=== PATIENT | female | born 1990 | race Caucasian/White ===

== ENCOUNTER 2019-07-08 19:47 | Emergency (ER) | payer BC ==
[2019-07-08] MEDS ORDERED: Acetaminophen 500 MG TAB ONE (20:08)
[2019-07-08 20:25] LABS: Pregnancy Test - Urine (BHCG) Negative (Negative); Pregu Control Background? CLEAR/WHITE (CLR/WHITE); Pregu Control Bar Appear? YES (CONTROL BAR); Specific Gravity 1.033 (1.002-1.036)
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
[2019-07-08] MEDS ORDERED: Ketorolac Tromethamine 30 MG/ML VIAL ONE (20:49)
[2019-07-08] MEDS ORDERED: Bacitracin 1 PK ONE (21:01)
[2019-07-08] MEDS ORDERED: Bacitracin Zinc Ointment 30 gm TUBE ONE (21:02)
== END 2019-07-08 21:16 | disposition home or self-care (01) ==
LOC: SCSER 19:47
DX: S09.90XA Unspecified injury of head, initial encounter (principal); S50.812A Abrasion of left forearm, initial encounter; H91.92 Unspecified hearing loss, left ear; F32.9 Major depressive disorder, single episode, unspecified; Z79.899 Other long term (current) drug therapy; V49.9XXA Car occupant (driver) (passenger) injured in unspecified traffic accident, initial encounter
CPT/HCPCS: 70450; 81025; 96372; J1885

== ENCOUNTER 2020-07-17 17:23 | Emergency (ER) | payer SELFPAY ==
[2020-07-17 17:54] LABS: #Eosinphils 0.1 thou/uL (0.0-0.7); #Lymphocytes 2.3 thou/uL (1.20-3.40); #Monocytes 0.4 thou/uL (0.11-0.59); %Basophils 0.7 % (0.0-1.0); %Eosinophils 1.4 % (0.0-10.0); %Lymphocytes 33.4 % (21.0-51.0); %Monocytes 6.1 % (0.0-10.0); %Neutrophils 58.4 % (42.0-75.0); Hemoglobin 11.9 g/dL (12.0-16.0); Mean Corpuscular HGB CONC 34.1 g/dL (32.0-36.0); Mean Corpuscular Hemoglobin 29.2 pg (27.0-31.0); Mean Corpuscular Volume 85.6 fL (78.0-98.0); Platelet Count 241 thou/uL (130-400); RBC Distribution Width 13.2 % (11.5-14.5); Red Blood Cell (RBC) Count 4.06 mill/uL (4.20-5.40); White Blood Cell (WBC) Count 6.8 thou/uL (4.8-10.8)
[2020-07-17] MEDS ORDERED: Mag-Al 1200 mg/1200 mg/30 ML UDCUP ONE (18:01)
[2020-07-17] MEDS ORDERED: Lidocaine Viscous Sol 2% 15 ml UD Cup ONE (18:01)
[2020-07-17] MEDS ORDERED: Pantoprazole 40 MG VIAL ONE (18:01)
--- NOTE | 2020-07-17 18:03 | RAD ---
RADIOGRAPH CHEST 1 VIEW: DATE: 07/17/2020 HISTORY: 30-year-old female with chest pain FINDINGS: The visualized lung keller are clear. The cardiomediastinal silhouette and hilar shadows are normal. The lateral costophrenic angles are sharp. The osseous structures appear normal. There is no pneumothorax. IMPRESSION: Negative.
[2020-07-17 18:27] LABS: ALT (SGPT) 48 U/L (8-55); AST (SGOT) 28 U/L (5-34); Albumin 4.5 g/dL (3.5-5.0); Alkaline Phosphatase 73 U/L (40-110); Anion Gap 15 mmol/L (10-20); BUN (Urea Nitrogen) 11 mg/dL (7.0-18.7); Bilirubin, Total 0.3 mg/dL (0.2-1.2); CK (CPK) 38 U/L (29-168); Calc. Creatinine Clearance 0 mL/min (70-130); Calcium 9.5 mg/dL (7.8-10.44); Carbon Dioxide 23 mmol/L (22-29); Chloride 106 mmol/L (98-107); Estimated GFR-MDRD 75; Globulin 2.9 g/dL (2.4-3.5); Glucose 130 mg/dL (70-105); Lipase 17 U/L (8-78); Potassium 4.1 mmol/L (3.5-5.1); Protein, Total 7.4 g/dL (6.0-8.3); Sodium 140 mmol/L (136-145)
--- NOTE | 2020-07-20 14:23 | EKG ---
Test Reason : Blood Pressure : / mmHG Vent. Rate : 093 BPM Atrial Rate : 093 BPM P-R Int : 114 ms QRS Dur : 084 ms QT Int : 380 ms P-R-T Axes : 015 013 006 degrees QTc Int : 472 ms Normal sinus rhythm Nonspecific ST abnormality Abnormal ECG Confirmed by MARK SONG, JAE ([id number]), news video editor NAVI ZHANG ([id number]) on 07/20/2020 2:22:44 PM Referred By: Confirmed By:JAE FLORES MD
== END 2020-07-17 18:48 | disposition home or self-care (01) ==
LOC: ERS 17:23
DX: K20.9 Esophagitis, unspecified (principal); K21.9 Gastro-esophageal reflux disease without esophagitis; F32.9 Major depressive disorder, single episode, unspecified; Z79.899 Other long term (current) drug therapy
CPT/HCPCS: 71045; 80053; 82550; 83690; 84484; 85025; 85379; 93005; 96374; C9113

== ENCOUNTER 2025-06-19 13:43 | Outpatient (CLI) | payer OTHER | END 2025-06-19 13:44 | disposition home or self-care (01) | LOC: SCSRAD 13:43 | PROVIDERS: ATTEND Family Medicine | DX: R07.9 Chest pain, unspecified (principal) | CPT/HCPCS: 71046 ==